=== PATIENT | female | born 1990 | race Hispanic/Latino ===

== ENCOUNTER 2021-03-29 15:41 | Emergency (ER) | payer OTHER ==
[~2021-03-29] VITALS: Ht 157.5 cm; Wt 54.4 kg
[2021-03-29] MEDS ORDERED: ACETAMINOPHEN 325 MG TAB PO NR (16:00)
== END 2021-03-29 16:20 | disposition home or self-care (01) ==
LOC: ER 15:57
DX: M25.531 Pain in right wrist (principal); G56.01 Carpal tunnel syndrome, right upper limb; Z33.1 Pregnant state, incidental
CPT/HCPCS: 99282